=== PATIENT | female | born 1975 | race Two or more races ===

== ENCOUNTER 2017-08-28 07:23 | Emergency (ER) | payer MEDICAID ==
[~2017-08-28] VITALS: Ht 162.6 cm; Wt 81.6 kg
[2017-08-28 07:35] VITALS: BP 112/64
== END 2017-08-28 07:54 | disposition home or self-care (01) ==
LOC: ER 07:23
DX: M79.1 Myalgia (principal)

== ENCOUNTER 2017-12-29 21:46 | Emergency (ER) | payer MEDICAID ==
[~2017-12-29] VITALS: Ht 162.6 cm; Wt 84.5 kg
[2017-12-29 22:10] VITALS: BP 118/58
[2017-12-29 22:37] LABS: Hematocrit 41.7 % (36.0-46.0); Mean Corpuscular Hemoglobin 29.6 pg (28.0-32.0); Mean Corpuscular Hgb Conc. 33.6 g/dL (32.0-36.0); Mean Corpuscular Volume 88.2 fL (80.0-100.0); Platelet Count (auto) 273 10^3/uL (140-450); Red Blood Cells 4.73 10^6/uL (4.0-5.20); Red Cell Distribution Width 12.5 % (11.8-14.3)
[2017-12-29 22:42] LABS: Band Neutrophils % (manual) 0; Basophils % (manual) 0 (0.0-2.0); Blast Cells 0; Metamyelocytes % 0; Myelocytes % 0; Promyelocytes % 0
[2017-12-29 22:53] LABS: INR 0.91 (0.9-1.15); Partial Thromboplastin Time 27.7 sec (22.64-33.71); Prothrombin Time 9.9 sec (9.37-12.3)
[2017-12-29 22:59] LABS: Alanine Aminotransferase 39 U/L (13-56); Albumin 3.6 g/dL (3.4-5.0); Amylase 61 U/L (25-115); Anion Gap 7 (5-15); Aspartate Aminotransferase 22 U/L (15-37); BUN/Creatinine Ratio 17.6; Blood Urea Nitrogen 13 mg/dL (7-18); Calcium 8.7 mg/dL (8.5-10.1); Carbon Dioxide 26 mmol/L (21-32); Chloride 106 mmol/L (98-107); GFR African American 110 mL/min; GFR Non-African American 91 mL/min; Glucose 107 mg/dL (74-106); Lipase 168 U/L (73-393); Potassium 4.3 mmol/L (3.5-5.1); Sodium 139 mmol/L (136-145)
[2017-12-29 23:02] LABS: Urine Bacteria FEW /hpf (None Seen); Urine Blood 2+ /uL (Negative); Urine Hyaline Cast FEW /lpf (0 - 2); Urine Mucus FEW (None Seen); Urine Specific Gravity 1.049 (1.001-1.035); Urine WBC 4 /hpf (0 - 5)
[2017-12-29 23:04] LABS: Alkaline Phosphatase 110 U/L (45-117); Bilirubin, Total 0.1 mg/dL (0.2-1.0); Eosinophils % (manual) 18 (0-7); Lymphocytes % (manual) 37 (10.0-50.0); Monocytes % (manual) 3 (0-12); Reactive Lymphocytes 3; Total Protein 7.6 g/dL (6.4-8.2)
[2017-12-29 23:16] LABS: Alcohol, Urine < 3.0 mg/dL (0-5); Amphetamine Screen, Urine POSITIVE (NEGATIVE); Barbiturate Scree,Urine NEGATIVE (NEGATIVE); Benzodiazephine Screen, Urine NEGATIVE (NEGATIVE); Cannabinoid Screen, Urine POSITIVE (NEGATIVE); Cocaine Screen, Urine NEGATIVE (NEGATIVE); Opiate Scree,Urine NEGATIVE (NEGATIVE); Phencyclidine Screen, Urine NEGATIVE (NEGATIVE)
== END 2017-12-30 01:46 | disposition left against medical advice (07) ==
LOC: ER 21:46
DX: R10.9 Unspecified abdominal pain (principal); Z53.21 Procedure and treatment not carried out due to patient leaving prior to being seen by health care provider
CPT/HCPCS: 36415; 74176; 80053; 80307; 81001; 81025; 82150; 82962; 83690; 84484; 85007; 85027; 85610; 85730; 93005